=== PATIENT | male | born 1950 | race Caucasian/White ===

== ENCOUNTER 2017-07-12 08:42 | Emergency (ER) | payer SELFPAY ==
[2017-07-12] MEDS ORDERED: Ibuprofen 800 MG TAB ONE (09:25)
--- NOTE | 2017-07-12 10:40 | RAD ---
RIGHT SHOULDER 3 VIEWS: Date: 07/12/17 HISTORY: Pain. COMPARISON: None. FINDINGS: Mild degenerative changes acromioclavicular joint. Mild calcific tendinosis of rotator cuff. There ar e insertional cysts of the greater tuberosity. No acute fracature or malalignment. IMPRESSION: Degenerative changes. No acute fracature or malalignment. POS: [facility]
== END 2017-07-12 10:45 | disposition home or self-care (01) ==
LOC: NAV ERS 08:42
DX: S43.401A Unspecified sprain of right shoulder joint, initial encounter (principal); I10 Essential (primary) hypertension; Z87.891 Personal history of nicotine dependence; Z79.899 Other long term (current) drug therapy; W00.9XXA Unspecified fall due to ice and snow, initial encounter